=== PATIENT | female | born 1960 | race Caucasian/White ===

== ENCOUNTER 2021-05-07 10:30 | Emergency (ER) | payer OTHER ==
[~2021-05-07] VITALS: Ht 165.1 cm; Wt 110.7 kg
[2021-05-07] MEDS ORDERED: CEPHALEXIN500 M1 PO (12:02)
== END 2021-05-07 12:20 | disposition home or self-care (01) ==
LOC: ED 10:30
DX: S61.011A Laceration without foreign body of right thumb without damage to nail, initial encounter (principal); W26.0XXA Contact with knife, initial encounter; Y93.89 Activity, other specified; Y92.89 Other specified places as the place of occurrence of the external cause; Y99.8 Other external cause status

== ENCOUNTER 2024-02-28 17:20 | Emergency (ER) | payer OTHER ==
[~2024-02-28] VITALS: Ht 167.6 cm; Wt 105.7 kg
[~2024-02-28 17:20] MED LIST: CEPHALEXIN500 M1 PO
== END 2024-02-28 18:58 | disposition home or self-care (01) ==
LOC: ED 17:20
DX: H11.31 Conjunctival hemorrhage, right eye (principal); E78.00 Pure hypercholesterolemia, unspecified